=== PATIENT | female | born 1955 ===

== ENCOUNTER 2018-02-20 22:11 | Emergency (ER) | payer MEDICARE, MEDICAID ==
--- NOTE | 2018-02-20 22:37 | C.PDOC ---
History Of Present Illness Patient seen tonite due to history of dizziness on and off for about a weak. Symptom is worwse with head movement.. Chief Complaint (Nursing): Dizziness/Lightheaded History Per: Patient History/Exam Limitations: no limitations Onset/Duration Of Symptoms: Days Current Symptoms Are (Timing): Still Present Current Symptoms: dizziness Activity At Onset Of Symptoms: Change In Head Position Associated Symptoms Preceding Syncopal Episode: Vertigo Past Medical History Vital Signs: Last Vital Signs Temp 97.9 F 02/20/18 22:38 Pulse 73 02/20/18 22:38 Resp 16 02/20/18 22:38 BP 161/89 H 02/20/18 22:38 Pulse Ox 100 02/20/18 22:38 - Medical History PMH: Diabetes, HTN Surgical History: No Surg Hx Family History: States: Unknown Family Hx - Social History Hx Tobacco Use: No Hx Alcohol Use: No Hx Substance Use: No - Immunization History Hx Tetanus Toxoid Vaccination: No Hx Influenza Vaccination: No Hx Pneumococcal Vaccination: No Review Of Systems Constitutional: Negative for: Fever, Chills Eyes: Negative for: Pain, Vision Change, Conjunctivae Inflammation ENT: Negative for: Nose Pain, Nose Discharge Cardiovascular: Negative for: Chest Pain, Palpitations, Orthopnea, Paroxysmal Noc. Dyspnea Respiratory: Negative for: Cough, Shortness of Breath Gastrointestinal: Negative for: Nausea, Vomiting Genitourinary: Negative for: Dysuria, Frequency Musculoskeletal: Positive for: Neck Pain (left sided neck area pain.) Skin: Negative for: Rash Neurological: Positive for: Dizziness. Negative for: Weakness, Numbness, Incoordination, Change in Speech, Confusion, Seizures, Altered Mental Status, Headache Psych: Negative for: Anxiety, Depression, Suicidal ideation, Withdrawal Physical Exam - Physical Exam Appears: No Acute Distress Skin: Normal Color Head: Atraumatic Eye(s): bilateral: Other (nystagmus-laterally, bilateral) Ear(s): Bilateral: Normal Nose: Normal Neck: Normal Chest: Symmetrical, No Deformity, No Tenderness Cardiovascular: Rhythm Regular Respiratory: Normal Breath Sounds Gastrointestinal/Abdominal: Normal Exam Back: Normal Inspection Extremity: Normal ROM Neurological/Psych: Oriented x3, Normal Speech, Normal Cognition, Other (no neuro deficit) Gait: Steady Other Neurological Findings: No Facial Palsy ED Course And Treatment - Laboratory Results Result Diagrams: 02/20/18 22:54 02/20/18 22:54 ECG: Interpreted By Me, Viewed By Me ECG Rhythm: Sinus Rhythm, ST/T Changes, Nonspecific Changes ECG Interpretation: No Acute Changes, Abnormal Interpretation Of ECG: NSR, non-spc ST-T changes, abnormal tracings. Rate From EC Disposition Counseled Patient/Family Regarding: Diagnosis - Disposition Referrals: [facility] [Outside] Disposition Time: 00:09 Condition: STABLE Prescriptions: Meclizine [Antivert] 12.5 mg PO Q6 #20 tab Instructions: Vertigo (a Type of Dizziness), Type 1 Diabetes Forms: [facility] (Turkmen), Gen Discharge Inst Uzbek Print Language: VIETNAMESE - Clinical Impression Clinical Impression: Dizziness, Vertigo, Diabetes mellitus
[2018-02-20 22:39] VITALS: BP 161/89; PULSE 73; RESP 16; TEMP 97.9; O2SAT 100
[2018-02-20] MEDS ORDERED: Sodium Chloride 0.9% 1,000 ML IV ONE (22:41)
[2018-02-20 22:58] LABS: BASO # 0.1 K/uL (0.0-0.2); BASO % 1.1 % (0.0-2.0); EOS # 0.2 K/uL (0.0-0.7); EOS % 2.7 % (0.0-4.0); HEMOGLOBIN 12.2 g/dL (11.0-16.0); LYMPH # 2.7 K/uL (1.0-4.3); LYMPH % 31.2 % (20.0-40.0); MEAN CELL VOLUME 85.8 fL (81.0-99.0); MEAN CORPUSCULAR HEMOGLOBIN 29.5 pg (27.0-31.0); MEAN CORPUSCULAR HGB CONC 34.4 g/dL (33.0-37.0); MEAN PLATELET VOLUME 8.7 fL (7.2-11.7); MONO # 0.6 K/uL (0.0-0.8); MONO % 7.4 % (0.0-10.0); NEUT % 57.6 % (50.0-75.0); RBC 4.15 Mil/uL (3.80-5.20); RED CELL DISTRIBUTION WIDTH 13.5 % (11.5-14.5); WHITE BLOOD COUNT 8.6 K/uL (4.8-10.8)
[2018-02-20] MEDS ORDERED: Sodium Chloride 0.9% 1,000 ML ONE (22:59)
[2018-02-20 23:48] LABS: ALB/GLOB RATIO 1.2 (1.0-2.1); ALBUMIN 4.2 g/dL (3.5-5.0); CALCIUM 9.7 mg/dl (8.6-10.4)
[2018-02-21 00:03] LABS: FERRITIN 46.8 ng/mL
[2018-02-21] MEDS ORDERED: (Novolin R) Insulin Human Regular 100 units/ml vial SC STA (00:08)
[2018-02-21] MEDS ORDERED: (Novolin R) Insulin Human Regular 100 units/ml vial ONE (00:18)
--- NOTE | 2018-02-21 12:34 | CT ---
Date of service: 02/20/2018 PROCEDURE: CT HEAD WITHOUT CONTRAST. HISTORY: Headache COMPARISON: None available. TECHNIQUE: Axial computed tomography images were obtained through the head/brain without intravenous contrast. Radiation dose: Total exam DLP = 849.56 mGy-cm. This CT exam was performed using one or more of the following dose reduction techniques: Automated exposure control, adjustment of the mA and/or kV according to patient size, and/or use of iterative reconstruction technique. FINDINGS: HEMORRHAGE: No intracranial hemorrhage. BRAIN: Normal kahn-white matter differentiation and density are appreciated throughout the cerebrum and cerebellum with the brainstem appearing unremarkable as well. There is no mass effect. There is no suspicious extra-axial fluid collection and the midline brain anatomy appears diffusely unremarkable. VENTRICLES: Unremarkable. No hydrocephalus. CALVARIUM: Unremarkable. PARANASAL SINUSES: Unremarkable as visualized. No significant inflammatory changes. MASTOID AIR CELLS: Unremarkable as visualized. No inflammatory changes. OTHER FINDINGS: None. IMPRESSION: Unremarkable noncontrast CT of the Head.
== END 2018-02-21 00:21 | disposition home or self-care (01) ==
LOC: C.ER 22:11
DX: R42 Dizziness and giddiness (principal); E11.9 Type 2 diabetes mellitus without complications
CPT/HCPCS: 70450; 80053; 82728; 82948; 85025; 96374; 99284; J2060; J7030

== ENCOUNTER 2018-09-08 10:59 | Outpatient (CLI) | payer MEDICARE, MEDICAID | END 2018-09-08 11:00 | disposition home or self-care (01) | LOC: C.RADIC 10:59 | DX: M19.90 Unspecified osteoarthritis, unspecified site (principal) ==

== ENCOUNTER 2018-09-23 20:01 | Emergency (ER) | payer MEDICARE, MEDICAID ==
[2018-09-23 20:08] VITALS: O2SAT 100
--- NOTE | 2018-09-23 20:22 | C.PDOC ---
History Of Present Illness 63 y/o female with history of HTN presents to ED for medical evaluation of right shoulder pain x 2 months without any known trauma. She states initially her pain was moderate and was seen by [employer] who diagnosed her with arthritis. She was placed on Motrin x 2 weeks and denies any improvement. She states that the pain has worsened and radiates down to elbow. She states the pain is worse with movement. She rates it a 8/10 and describes the pain as throbbing. She has not followed up with ortho or PMD. Ahe denies any headache, dizziness, weakness, cheat pain, SOB, abdominal pain, and paresthesias. Time Seen by Provider: 09/23/18 20:12 Chief Complaint (Nursing): Upper Extremity Problem/Injury History Per: Patient History/Exam Limitations: no limitations Onset/Duration Of Symptoms: Persistent Current Symptoms Are (Timing): Still Present Quality: Other (throbbing) Severity: Severe Pain Scale Rating Of: 8 Exacerbating Factor(s): Movement Recent travel outside of the [place]: No Past Medical History Reviewed: Historical Data, Nursing Documentation, Vital Signs Vital Signs: Last Vital Signs Temp 98.1 F 09/23/18 20:04 Pulse 79 09/23/18 20:04 Resp 20 09/23/18 20:04 BP 159/95 H 09/23/18 20:04 Pulse Ox 100 09/23/18 20:04 - Medical History PMH: Diabetes, HTN, Hypothyroidism Surgical History: Cholecystectomy Family History: States: Unknown Family Hx - Social History Hx Tobacco Use: No Hx Alcohol Use: No Hx Substance Use: No - Immunization History Hx Tetanus Toxoid Vaccination: No Hx Influenza Vaccination: No Hx Pneumococcal Vaccination: No Review Of Systems Constitutional: Negative for: Weakness Cardiovascular: Negative for: Chest Pain Respiratory: Negative for: Shortness of Breath Gastrointestinal: Negative for: Nausea, Vomiting, Abdominal Pain Musculoskeletal: Positive for: Shoulder Pain. Negative for: Neck Pain Skin: Negative for: Rash Neurological: Negative for: Headache, Dizziness Physical Exam - Physical Exam Appears: Well, Non-toxic, No Acute Distress Skin: Normal Color, Warm, Dry Head: Atraumatic, Normacephalic Eye(s): bilateral: Normal Inspection, PERRL Oral Mucosa: Moist Neck: Normal ROM, Supple Lymphatic: No Adenopathy (cervical) Chest: Symmetrical Cardiovascular: Rhythm Regular Respiratory: Normal Breath Sounds, No Wheezing Gastrointestinal/Abdominal: Soft, No Tenderness, No Guarding Extremity: Normal ROM, Tenderness (right deltoid), Capillary Refill (less than 2 seconds), No Deformity, No Swelling Pulses: Left Brachial: Normal, Right Brachial: Normal, Left Radial: Normal, Right Radial: Normal Neurological/Psych: Oriented x3, Normal Speech, Normal Cognition, Normal Motor, Normal Sensation Gait: Steady ED Course And Treatment O2 Sat by Pulse Oximetry: 100 Medical Decision Making Medical Decision Making: Plan: Tramdol given and pain improved Stable for discharge continue Tramadol prn pain x 5 days then start Naproxen referred to Ortho return to ED if symptoms persist or worsen patient verbalized understanding and is in agreement with plan Disposition Counseled Patient/Family Regarding: Diagnosis, Need For Followup, Rx Given - Disposition Referrals: Jv Kramer III, MD [Staff Provider] - Noel Lawrence MD [Staff Provider] - Disposition Time: 21:10 Condition: IMPROVED Additional Instructions: JORDANA RAHMAN, thank you for letting us take care of you today. Your provider was Chantel Colon PA-C and you were treated for SHOULDER PAIN. The emergency medical care you received today was directed at your acute symptoms. If you were prescribed any medication, please fill it and take as directed. It may take several days for your symptoms to resolve. Return to the Emergency Department if your symptoms worsen, do not improve, or if you have any other problems. Please contact your doctor or call one of the physicians/clinics you have been referred to that are listed on the Patient Visit Information form that is included in your discharge packet. Bring any paperwork you were given at discharge with you along with any medications you are taking to your follow up visit. Our treatment cannot replace ongoing medical care by a primary care provider outside of the emergency department. Thank you for allowing the [facility] team to be part of your care today. Prescriptions: Naproxen [Naprosyn] 500 mg PO BID #30 tablet traMADol [Ultram] 50 mg PO TID #15 tab Instructions: Shoulder Pain (DC) Forms: 10sec (Frisian) - Clinical Impression Clinical Impression: Shoulder pain, right, Shoulder disorder - PA / CVICU NURSE / Resident Statement MD/DO has reviewed & agrees with the documentation as recorded.
[2018-09-23 21:16] VITALS: BP 150/83; PULSE 78; RESP 18; TEMP 98
== END 2018-09-23 21:17 | disposition home or self-care (01) ==
LOC: C.ER 20:01
DX: M25.511 Pain in right shoulder (principal)

== ENCOUNTER 2018-10-07 09:24 | Outpatient (CLI) | payer MEDICARE, MEDICAID | END 2018-10-07 09:25 | disposition home or self-care (01) | LOC: C.DEXAIC 09:24 | DX: M81.8 Other osteoporosis without current pathological fracture (principal) ==